=== PATIENT | male | born 1960 | race Caucasian/White ===

== ENCOUNTER 2019-10-23 18:42 | Emergency (ER) | payer BC ==
[~2019-10-23] VITALS: Ht 188 cm; Wt 106.6 kg
[2019-10-23 19:16] LABS: BASOPHILS # (AUTO) 0.1 /CMM (0.0-0.2); BASOPHILS % (AUTO) 0.9 % (0.0-2.0); EOSINOPHILS % (AUTO) 0.4 % (0.0-6.0); HEMATOCRIT 48 % (39-51); HEMOGLOBIN 16.8 g/dL (13.5-17.5); LYMPHOCYTES % (AUTO) 12.1 % (20.0-44.0); MEAN CORPUSCULAR HGB CONC 35 g/dl (31.0-36.0); MEAN CORPUSCULAR VOLUME 90 fL (80-96); MONOCYTES # (AUTO) 1.1 /CMM (0.1-1.30); MONOCYTES % (AUTO) 13.1 % (2.0-12.0); NEUTROPHILS # (AUTO) 6.2 /CMM (1.8-8.9); NEUTROPHILS % (AUTO) 73.5 % (43.0-81.0); PLATELET COUNT (AUTO) 199 /CMM (150-450); RED BLOOD CELL COUNT(AUTO) 5.36 MIL/uL (4.5-6.0); WHITE BLOOD COUNT (AUTO) 8.5 K/uL (4.3-11.0)
--- NOTE | 2019-10-23 19:19 | NUR ---
Patient attempted to give UA sample but unsuccessful. labs were drawn and sent to lab.
--- NOTE | 2019-10-23 19:19 | NUR ---
endorsed to [facility].
--- NOTE | 2019-10-23 19:19 | NUR ---
sent by PMD due to high bp 174/114, on BP med, cough x 5 days, afebrile. Patient a/ox4, breathing even and unlabored, no sob noted, attached to the library monitor.
[2019-10-23 19:27] LABS: CALCIUM, SERUM 9.2 mg/dL (8.5-10.1); CARBON DIOXIDE 30 mmol/L (21-32); CHLORIDE 103 mmol/L (98-107); CREATININE 1.3 mg/dL (0.6-1.3); GLUCOSE 109 mg/dL (74-106); POTASSIUM 4.2 mmol/L (3.5-5.1); SODIUM SERUM 141 mmol/L (136-145); UREA NITROGEN, BLOOD 15 mg/dL (7-18)
[2019-10-23 19:32] LABS: ALANINE AMINOTRANSFERASE 30 U/L (12-78); ALBUMIN 4.2 g/dL (3.4-5.0); ALKALINE PHOSPHATASE 46 U/L (46-116); ASPARTATE AMINOTRANSFERASE 25 U/L (15-37); BILIRUBIN,DIRECT 0.2 mg/dL (0.0-0.2); BILIRUBIN,TOTAL 0.9 mg/dL (0.2-1.0); TOTAL PROTEIN, SERUM 7.9 g/dL (6.4-8.2)
--- NOTE | 2019-10-23 19:50 | NUR ---
PT APPEARS TO BE RESTING COMFORTABLY. READJUSTED THE BP CUFF. PT IS ON THE MONITOR AND CONTINUOUS PULSE OX.
[2019-10-23] MEDS ORDERED: LABETALOL HCL IV 100MG VIAL ONE (19:57)
[2019-10-23] MEDS ORDERED: LABETALOL 20 MG/4 ML VIAL IV ONE (20:00)
--- NOTE | 2019-10-23 20:00 | NUR ---
PT WAS UP FOR DC HOME. PT'S BP WAS 165/108 WITH A HR OF 120. MD NOTIFIED. NEW ORDERS GIVEN.
--- NOTE | 2019-10-23 20:40 | NUR ---
IV removed. Catheter intact and site benign. Pressure and 4x4 applied to site. No bleeding noted. Patient discharged to home in stable condition. Written and verbal after care instructions given. Patient verbalizes understanding of instruction AND RX. PT'S BP IS WNL. VSS. PT AMBULATED OUT WITH A STEADY GAIT.
[2019-10-23 20:50] VITALS: BP 143/109
== END 2019-10-23 20:40 | disposition home or self-care (01) ==
LOC: ER 18:45
DX: I10 Essential (primary) hypertension (principal)
CPT/HCPCS: 36415; 71045; 80048; 80076; 83605; 84145; 84484; 85025; 85730; 87040 ×2; 93005; 96374; 99284; J3490 ×2